=== PATIENT | female | born 1960 | race Caucasian/White ===

== ENCOUNTER → 2024-05-02 08:58 | Outpatient (REF) | payer BC, SELFPAY | LOC: HWRAD 08:58 | PROVIDERS: ATTENDING PHYSICIAN Internal Medicine Rheumatology; FAMILY PHYSICIAN Family Medicine | DX: M81.0 Age-related osteoporosis without current pathological fracture (principal) | CPT/HCPCS: 77080 ==

== ENCOUNTER 2024-11-08 17:57 | Outpatient (RCR) | payer BC, SELFPAY | END 2024-11-08 23:59 | disposition home or self-care (01) | LOC: RPT 17:57 | PROVIDERS: ATTENDING PHYSICIAN Orthopaedic Surgery; FAMILY PHYSICIAN Family Medicine | DX: M75.01 Adhesive capsulitis of right shoulder (principal); M67.911 Unspecified disorder of synovium and tendon, right shoulder; Z73.6 Limitation of activities due to disability | CPT/HCPCS: 97010; 97110; 97112; 97140; 97162 ==

== ENCOUNTER 2024-12-06 16:08 | Outpatient (RCR) | payer BC, SELFPAY | END 2024-12-06 23:59 | disposition home or self-care (01) | LOC: RPT 16:08 | PROVIDERS: ATTENDING PHYSICIAN Orthopaedic Surgery; FAMILY PHYSICIAN Family Medicine | DX: M75.01 Adhesive capsulitis of right shoulder (principal); M67.911 Unspecified disorder of synovium and tendon, right shoulder; Z73.6 Limitation of activities due to disability | CPT/HCPCS: 97010; 97110; 97112; 97140; 97530 ==

== ENCOUNTER → 2025-05-17 11:51 | Outpatient (REF) | payer BC, SELFPAY ==
[2025-05-17 16:10] LABS: Hematocrit 42.3 % (37.0-47.0); Hemoglobin 14.2 g/dL (12.0-16.0); Mean Corp Hgb Conc. 33.6 g/dL (33.0-37.0); Mean Corpuscular Volume 92.0 fL (81.0-99.0); Nucleated Red Blood Cells % 0 %; Platelet Count 289 10^3/uL (130-400); Red Cell Dist. Width 12.1 % (11.5-14.5)
[2025-05-17 16:28] LABS: Blood Urea Nitrogen 12 mg/dl (7-17); Calcium 9.8 mg/dl (8.4-10.2); Carbon Dioxide 27 mmol/L (22-30); Chloride 105 mmol/L (98-107); Glucose 97 mg/dl (70-99); Potassium 4.2 mmol/L (3.5-5.1); Sodium 139 mmol/L (135-145); eGFR > 60.00
== END ==
LOC: HWLAB 11:51
PROVIDERS: ATTENDING PHYSICIAN Specialist; FAMILY PHYSICIAN Family Medicine
DX: Z01.818 Encounter for other preprocedural examination (principal)
CPT/HCPCS: 36415; 80048; 85025; 93005